=== PATIENT | female | born 1995 | race Caucasian/White ===

== ENCOUNTER 2023-08-14 14:04 | Emergency (ER) | payer SELFPAY ==
[2023-08-14 14:08] VITALS: BP 114/59; PULSE 104; RESP 16; TEMP 37.7; O2SAT 99
--- NOTE | 2023-08-14 14:57 | PC.NURSE ---
pt states that she was taking to her pcp, and can get dialysis tomorrow. pt choosing to leave and gp to that appt instead of waiting
== END 2023-08-14 15:06 | disposition left against medical advice (07) ==
LOC: ANHED 14:59
DX: R69 Illness, unspecified (principal)
CPT/HCPCS: 99199